=== PATIENT | male | born 1945 | race Caucasian/White ===

== ENCOUNTER 2022-01-19 19:40 | Inpatient (IN) ==
[2022-01-19] MEDS ORDERED: Ipratropium/Albuterol Neb 3 ML IH ONE (20:04)
[2022-01-19] MEDS ORDERED: Azithromycin 500 MG in 0.9 % Sodium Chloride 250 ML IVPB ONE (20:05)
[2022-01-19 20:18] LABS: Basophils % 0.5 %; Eosinophils # 0.1 K/mcL (0.0-0.6); Eosinophils % 0.8 %; Hematocrit 47.7 % (37.5-50.1); Hemoglobin 15.4 g/dL (12.9-16.9); Immature Granulocytes % 0.4 % (0-4); Lymphocytes # 1.3 K/mcL (0.6-4.6); Lymphocytes % 16.3 %; Mean Corpuscular HGB Conc 32.3 g/dL (31.6-35.5); Mean Corpuscular Hemoglobin 28.3 pg (28.0-33.3); Mean Corpuscular Volume 87.5 fL (83.0-100.0); Mean Platelet Volume 9.9 fL (9.4-12.4); Monocytes # 0.3 K/mcL (0.0-1.3); Monocytes % 3.4 %; Neutrophils # 6.5 K/mcL (1.6-8.9); Platelet Count 228 K/mcL (140-400); Red Blood Count 5.45 M/mcL (4.19-5.50); Red Cell Distribution Width 13.2 % (11.5-14.5); Segmented Neutrophils % 78.6 %; White Blood Count 8.2 K/mcL (4.3-11.1)
[2022-01-19 20:55] LABS: BUN/Creatinine Ratio 14 (6-26); Blood Urea Nitrogen 16 mg/dL (8-23); Calcium 8.6 mg/dL (8.6-10.3); Carbon Dioxide 26 mEq/L (23-29); Chloride 109 mEq/L (98-107); Glucose 142 mg/dL (70-105); Osmolality,Calculated 298 (280-300); Potassium 3.8 mEq/L (3.5-5.1); Sodium 142 mEq/L (136-145); eGFR For African Americans > 60 (> 60); eGFR For Non-African Americans > 60 (> 60)
[2022-01-19 20:56] LABS: Troponin I < 0.03 ng/mL (< 0.04)
[2022-01-19] MEDS ORDERED: Naloxone 0.4 MG/ML INJ IVP PRN (23:09)
[2022-01-19] MEDS ORDERED: 0.9 % Sodium Chloride 1,000 ML IVC SCH (23:09)
[2022-01-19] MEDS ORDERED: MethylPREDNISolone 40 MG/ML VIAL IVP ONE (23:09)
[2022-01-20] MEDS: Ipratropium/Albuterol Neb 3 ML IH SCH ×6 (02:36→19:40)
[2022-01-20] MEDS ORDERED: Budesonide/Formoterol 80/4.5 1 PUFF INH IH ONE (07:40)
[2022-01-20 07:59] LABS: Basophils % 0.1 %; Hemoglobin 13.6 g/dL (12.9-16.9); Immature Granulocytes % 0.3 % (0-4); Lymphocytes % 11.4 %; Mean Corpuscular HGB Conc 32.4 g/dL (31.6-35.5); Mean Corpuscular Hemoglobin 28.2 pg (28.0-33.3); Mean Corpuscular Volume 87.1 fL (83.0-100.0); Mean Platelet Volume 10.3 fL (9.4-12.4); Monocytes # 0.1 K/mcL (0.0-1.3); Neutrophils # 7.9 K/mcL (1.6-8.9); Platelet Count 224 K/mcL (140-400); Red Blood Count 4.82 M/mcL (4.19-5.50); Red Cell Distribution Width 13.1 % (11.5-14.5); Segmented Neutrophils % 87.2 %; White Blood Count 9.1 K/mcL (4.3-11.1)
[2022-01-20] MEDS: Aspirin Enteric Coated 81 MG Tablet PO SCH (08:12)
[2022-01-20] MEDS: Ziprasidone 20 MG CAPSULE PO SCH ×2 (08:12→20:29)
[2022-01-20] MEDS: MethylPREDNISolone 40 MG/ML VIAL IVP SCH ×2 (08:13→17:16)
[2022-01-20] MEDS: Multivit/Ca/Min/Fe/FA 1 TAB TABLET PO SCH (08:13)
[2022-01-20] MEDS: Cholecalciferol (D-3) 1,000 UNIT (25MCG) TABLET PO SCH (08:13)
[2022-01-20 08:14] LABS: BUN/Creatinine Ratio 18 (6-26); Blood Urea Nitrogen 15 mg/dL (8-23); Calcium 8.5 mg/dL (8.6-10.3); Carbon Dioxide 22 mEq/L (23-29); Chloride 114 mEq/L (98-107); Glucose 147 mg/dL (70-105); Osmolality,Calculated 298 (280-300); Potassium 3.6 mEq/L (3.5-5.1); Sodium 142 mEq/L (136-145); eGFR For African Americans > 60 (> 60); eGFR For Non-African Americans > 60 (> 60)
[2022-01-20] MEDS: Furosemide 20 MG TABLET PO SCH (08:15)
[2022-01-20] MEDS: Topiramate 100 MG TABLET PO SCH (08:24)
[2022-01-20] MEDS: Budesonide/Formoterol 80/4.5 1 PUFF INH IH SCH ×2 (09:18→21:28)
[2022-01-20 13:24] LABS: Adenovirus Not Detected (Not Detect); Bordetella Pertussis Not Detected (Not Detect); Chlamydophila pneumoniae Not Detected (Not Detect); Coronavirus 229E Not Detected (Not Detect); Coronavirus HKU1 Not Detected (Not Detect); Coronavirus NL63 Not Detected (Not Detect); Coronavirus OC43 Not Detected (Not Detect); Human Metapneumovirus Not Detected (Not Detect); Human Rhinovirus/Enterovirus Not Detected (Not Detect); Influenza A Subtype 2009 H1 Not Detected (Not Detect); Influenza B Not Detected (Not Detect); Mycoplasma pneumoniae Not Detected (Not Detect); Parainfluenza Virus 1 Not Detected (Not Detect); Parainfluenza Virus 2 Not Detected (Not Detect); Parainfluenza Virus 3 Not Detected (Not Detect); Parainfluenza Virus 4 Not Detected (Not Detect); Respiratory Syncytial Virus Not Detected (Not Detect); SARS-CoV-2 Not Detected (Not Detect)
[2022-01-20] MEDS: Azithromycin 500 MG in 0.9 % Sodium Chloride 250 ML IVPB SCH (20:30)
[2022-01-20] MEDS: cefTRIAXone 1,000 MG in 0.9 % Sodium Chloride Mini Bag 100 ML IVPB SCH (21:53)
[2022-01-21] MEDS: Ipratropium/Albuterol Neb 3 ML IH SCH ×6 (00:06→20:08)
[2022-01-21] MEDS: MethylPREDNISolone 40 MG/ML VIAL IVP SCH ×3 (00:11→17:49)
[2022-01-21] MEDS: *HR* Enoxaparin 40 MG/0.4 ML SYRINGE SQ SCH (05:22)
[2022-01-21 06:00] LABS: Basophils % 0.1 %; Hematocrit 39.5 % (37.5-50.1); Hemoglobin 12.6 g/dL (12.9-16.9); Immature Granulocytes % 0.5 % (0-4); Lymphocytes # 0.9 K/mcL (0.6-4.6); Lymphocytes % 6.2 %; Mean Corpuscular HGB Conc 31.9 g/dL (31.6-35.5); Mean Corpuscular Hemoglobin 28.4 pg (28.0-33.3); Mean Platelet Volume 11.1 fL (9.4-12.4); Monocytes # 0.3 K/mcL (0.0-1.3); Monocytes % 2.1 %; Neutrophils # 13.3 K/mcL (1.6-8.9); Platelet Count 212 K/mcL (140-400); Red Blood Count 4.44 M/mcL (4.19-5.50); Red Cell Distribution Width 13.5 % (11.5-14.5); Segmented Neutrophils % 91.1 %; White Blood Count 14.6 K/mcL (4.3-11.1)
[2022-01-21 06:15] LABS: BUN/Creatinine Ratio 16 (6-26); Blood Urea Nitrogen 14 mg/dL (8-23); Calcium 8.2 mg/dL (8.6-10.3); Carbon Dioxide 22 mEq/L (23-29); Chloride 114 mEq/L (98-107); Glucose 142 mg/dL (70-105); Osmolality,Calculated 299 (280-300); Potassium 3.8 mEq/L (3.5-5.1); Sodium 143 mEq/L (136-145); eGFR For African Americans > 60 (> 60); eGFR For Non-African Americans > 60 (> 60)
[2022-01-21] MEDS: Aspirin Enteric Coated 81 MG Tablet PO SCH (08:20)
[2022-01-21] MEDS: Cholecalciferol (D-3) 1,000 UNIT (25MCG) TABLET PO SCH (08:20)
[2022-01-21] MEDS: Multivit/Ca/Min/Fe/FA 1 TAB TABLET PO SCH (08:20)
[2022-01-21] MEDS: Ziprasidone 20 MG CAPSULE PO SCH ×2 (08:20→22:15)
[2022-01-21] MEDS: Furosemide 20 MG TABLET PO SCH (08:21)
[2022-01-21] MEDS: Topiramate 100 MG TABLET PO SCH (08:21)
[2022-01-21] MEDS: Budesonide/Formoterol 80/4.5 1 PUFF INH IH SCH ×2 (08:29→20:08)
[2022-01-21] MEDS: Azithromycin 500 MG in 0.9 % Sodium Chloride 250 ML IVPB SCH (20:02)
[2022-01-21] MEDS: cefTRIAXone 1,000 MG in 0.9 % Sodium Chloride Mini Bag 100 ML IVPB SCH (22:19)
[2022-01-22] MEDS: Ipratropium/Albuterol Neb 3 ML IH SCH ×4 (00:13→11:19)
[2022-01-22] MEDS: *HR* Enoxaparin 40 MG/0.4 ML SYRINGE SQ SCH (05:25)
[2022-01-22] MEDS: MethylPREDNISolone 40 MG/ML VIAL IVP SCH (05:25)
[2022-01-22 07:11] VITALS: RESP 20
[2022-01-22 07:17] LABS: Basophils % 0.1 %; Hematocrit 41.4 % (37.5-50.1); Hemoglobin 13.2 g/dL (12.9-16.9); Immature Granulocytes % 0.7 % (0-4); Lymphocytes # 1.5 K/mcL (0.6-4.6); Lymphocytes % 10.5 %; Mean Corpuscular HGB Conc 31.9 g/dL (31.6-35.5); Mean Corpuscular Hemoglobin 28.1 pg (28.0-33.3); Mean Corpuscular Volume 88.1 fL (83.0-100.0); Mean Platelet Volume 10.4 fL (9.4-12.4); Monocytes # 0.6 K/mcL (0.0-1.3); Neutrophils # 12.1 K/mcL (1.6-8.9); Platelet Count 207 K/mcL (140-400); Red Cell Distribution Width 13.8 % (11.5-14.5); Segmented Neutrophils % 84.7 %; White Blood Count 14.3 K/mcL (4.3-11.1)
[2022-01-22 07:39] LABS: BUN/Creatinine Ratio 15 (6-26); Blood Urea Nitrogen 13 mg/dL (8-23); Calcium 8.4 mg/dL (8.6-10.3); Carbon Dioxide 23 mEq/L (23-29); Chloride 114 mEq/L (98-107); Glucose 96 mg/dL (70-105); Osmolality,Calculated 298 (280-300); Potassium 3.4 mEq/L (3.5-5.1); Sodium 144 mEq/L (136-145); eGFR For African Americans > 60 (> 60); eGFR For Non-African Americans > 60 (> 60)
[2022-01-22] MEDS: Budesonide/Formoterol 80/4.5 1 PUFF INH IH SCH (08:04)
[2022-01-22] MEDS: Aspirin Enteric Coated 81 MG Tablet PO SCH (09:55)
[2022-01-22] MEDS: Ziprasidone 20 MG CAPSULE PO SCH (09:55)
[2022-01-22] MEDS: Topiramate 100 MG TABLET PO SCH (09:55)
[2022-01-22] MEDS: Cholecalciferol (D-3) 1,000 UNIT (25MCG) TABLET PO SCH (09:56)
[2022-01-22] MEDS: Furosemide 20 MG TABLET PO SCH (09:56)
[2022-01-22] MEDS: Multivit/Ca/Min/Fe/FA 1 TAB TABLET PO SCH (09:56)
[2022-01-22 10:44] VITALS: BP 128/69; PULSE 103; TEMP 98.4
[2022-01-22 11:20] VITALS: O2SAT 98
== END 2022-01-22 15:00 | disposition home health service (06) | DRG 193 ==
LOC: INPPIK 19:40 → EMEROOPIK 19:40 → INPPIK 22:58
PROVIDERS: ADMIT Student in an Organized Health Care Education/Training Program; ATTEND Student in an Organized Health Care Education/Training Program

== ENCOUNTER 2022-02-14 09:24 | Inpatient (IN) ==
[2022-02-14] MEDS ORDERED: methylPREDNISolone 125 MG/2 ML VIAL IVP ONE (09:27)
[2022-02-14 09:45] LABS: ABG Base Excess -3 mEq/L (-2 to 3); ABG HCO3 21 mEq/L (21-27); ABG Oxygen Saturation 96 % (95-98); ABG PCO2 36 mmHg (35-45); ABG PH 7.38 pH Units (7.32-7.45); ABG PO2 80 mmHg (85-104); ABG TCO2 22 mEq/L (20-26)
[2022-02-14 09:52] LABS: Basophils % 0.1 %; Hematocrit 42.1 % (37.5-50.1); Hemoglobin 13.8 g/dL (12.9-16.9); Immature Granulocytes % 0.5 % (0-4); Lymphocytes # 1.1 K/mcL (0.6-4.6); Lymphocytes % 7.3 %; Mean Corpuscular HGB Conc 32.8 g/dL (31.6-35.5); Mean Corpuscular Hemoglobin 28.3 pg (28.0-33.3); Mean Corpuscular Volume 86.3 fL (83.0-100.0); Mean Platelet Volume 10.2 fL (9.4-12.4); Monocytes % 6.6 %; Neutrophils # 13.2 K/mcL (1.6-8.9); Platelet Count 218 K/mcL (140-400); Red Blood Count 4.88 M/mcL (4.19-5.50); Red Cell Distribution Width 13.2 % (11.5-14.5); Segmented Neutrophils % 85.5 %; White Blood Count 15.4 K/mcL (4.3-11.1)
[2022-02-14 10:01] LABS: INR 1.4; Prothrombin Time 15.3 Seconds (9.4-12.1)
[2022-02-14 10:12] LABS: Alanine Aminotransferase 43 Units/L (7-52); Albumin 3.8 g/dL (3.5-5.7); Albumin/Globulin Ratio 1.2 (1.1-2.2); Alkaline Phosphatase 94 Units/L (34-104); Aspartate Amino Transferase 85 Units/L (13-39); BUN/Creatinine Ratio 18 (6-26); Bilirubin,Direct 0.3 mg/dL (0.0-0.2); Bilirubin,Indirect 0.7 mg/dL (0.0-1.0); Blood Urea Nitrogen 15 mg/dL (8-23); Calcium 8.6 mg/dL (8.6-10.3); Carbon Dioxide 21 mEq/L (23-29); Chloride 110 mEq/L (98-107); Globulin 3.3 g/dL (2.4-3.5); Glucose 133 mg/dL (70-105); Osmolality,Calculated 295 (280-300); Potassium 3.4 mEq/L (3.5-5.1); Sodium 141 mEq/L (136-145); Total Protein 7.1 g/dL (6.4-8.9); eGFR For African Americans > 60 (> 60); eGFR For Non-African Americans > 60 (> 60)
[2022-02-14 10:13] LABS: Troponin I < 0.03 ng/mL (< 0.04)
[2022-02-14] MEDS ORDERED: cefTRIAXone 2,000 MG in 0.9 % Sodium Chloride Mini Bag 100 ML IVPB ONE (10:32)
[2022-02-14] MEDS ORDERED: Azithromycin 500 MG in 0.9 % Sodium Chloride 250 ML IVPB ONE (10:32)
[2022-02-14 10:50] LABS: Bilirubin,Urine Small (Negative); Blood,Urine Large (Negative); Clarity,Urine Clear (Clear); Glucose,Urine (UA) Normal (Normal); Ketones,Urine Negative (Negative); Leukocyte Esterase,Urine Negative (Negative); Nitrite,Urine Negative (Negative); PH,Urine 5.5 pH Units (5.0-8.0); Protein,Urine >=300 mg/dL (Neg-Trace); Specific Gravity,Urine >= 1.030 (1.010-1.025)
[2022-02-14 10:54] LABS: Color,Urine Dark Yellow (Yellow)
[2022-02-14 10:56] LABS: Amorphous Sediment,Urine Moderate per hpf (None-Few); Bacteria,Urine Few per hpf (None-Few); WBC,Urine 0-3 per hpf (0-3)
[2022-02-14] MEDS ORDERED: Ondansetron 4 MG/2 ML VIAL IVP PRN (10:58)
[2022-02-14] MEDS ORDERED: Acetaminophen 325 MG TABLET PO PRN (10:58)
[2022-02-14] MEDS ORDERED: Naloxone 0.4 MG/ML INJ IVP PRN (10:58)
[2022-02-14] MEDS ORDERED: Ipratropium/Albuterol Neb 3 ML IH PRN (11:01)
[2022-02-14] MEDS: *HR* Heparin 5,000 UNIT/ML VIAL SQ SCH ×2 (15:30→21:53)
[2022-02-14] MEDS: MethylPREDNISolone 40 MG/ML VIAL IVP SCH ×2 (15:30→23:49)
[2022-02-14] MEDS: Budesonide/Formoterol 160/4.5 1 PUFF INH IH SCH (21:13)
[2022-02-14] MEDS: Ziprasidone 20 MG CAPSULE PO SCH (21:54)
[2022-02-15] MEDS: *HR* Heparin 5,000 UNIT/ML VIAL SQ SCH ×3 (04:44→20:05)
[2022-02-15 07:16] LABS: Basophils % 0.1 %; Hemoglobin 12.4 g/dL (12.9-16.9); Immature Granulocytes % 0.6 % (0-4); Lymphocytes % 6.7 %; Mean Corpuscular HGB Conc 31.8 g/dL (31.6-35.5); Mean Corpuscular Hemoglobin 27.7 pg (28.0-33.3); Mean Corpuscular Volume 87.2 fL (83.0-100.0); Mean Platelet Volume 10.5 fL (9.4-12.4); Monocytes # 0.4 K/mcL (0.0-1.3); Monocytes % 2.9 %; Platelet Count 232 K/mcL (140-400); Red Blood Count 4.47 M/mcL (4.19-5.50); Red Cell Distribution Width 13.2 % (11.5-14.5); Segmented Neutrophils % 89.7 %; White Blood Count 14.3 K/mcL (4.3-11.1)
[2022-02-15 07:48] LABS: BUN/Creatinine Ratio 22 (6-26); Blood Urea Nitrogen 17 mg/dL (8-23); Calcium 8.6 mg/dL (8.6-10.3); Carbon Dioxide 25 mEq/L (23-29); Chloride 110 mEq/L (98-107); Glucose 141 mg/dL (70-105); Magnesium 2.2 mg/dL (1.6-2.6); Osmolality,Calculated 294 (280-300); Potassium 3.6 mEq/L (3.5-5.1); Sodium 140 mEq/L (136-145); eGFR For African Americans > 60 (> 60); eGFR For Non-African Americans > 60 (> 60)
[2022-02-15 07:56] LABS: Neutrophils # 12.8 K/mcL (1.6-8.9)
[2022-02-15] MEDS ORDERED: Azithromycin 500 MG in 0.9 % Sodium Chloride 250 ML IVPB SCH (09:00)
[2022-02-15] MEDS ORDERED: cefTRIAXone 2,000 MG in 0.9 % Sodium Chloride 20 ML IVP SCH (09:00)
[2022-02-15] MEDS ORDERED: cefTRIAXone 2,000 MG in 0.9 % Sodium Chloride Mini Bag 100 ML IVPB SCH ×2 (09:00→11:00)
[2022-02-15] MEDS: Budesonide/Formoterol 160/4.5 1 PUFF INH IH SCH ×2 (09:16→21:24)
[2022-02-15] MEDS: Furosemide 20 MG TABLET PO SCH (10:15)
[2022-02-15] MEDS: Aspirin 81 MG TAB.CHEW PO SCH (10:15)
[2022-02-15] MEDS ORDERED: cefTRIAXone 2,000 MG in Water for inj. (sterile) 20 ML IVP SCH (10:15)
[2022-02-15] MEDS: Ziprasidone 20 MG CAPSULE PO SCH ×2 (10:15→20:05)
[2022-02-15] MEDS: Topiramate 100 MG TABLET PO SCH (10:15)
[2022-02-15] MEDS: MethylPREDNISolone 40 MG/ML VIAL IVP SCH ×2 (10:16→18:21)
[2022-02-16] MEDS: MethylPREDNISolone 40 MG/ML VIAL IVP SCH ×3 (00:05→17:31)
[2022-02-16] MEDS: *HR* Heparin 5,000 UNIT/ML VIAL SQ SCH ×3 (05:19→20:19)
[2022-02-16 07:21] LABS: Basophils % 0.1 %; Hematocrit 39.2 % (37.5-50.1); Hemoglobin 12.7 g/dL (12.9-16.9); Immature Granulocytes % 0.5 % (0-4); Lymphocytes # 1.3 K/mcL (0.6-4.6); Lymphocytes % 8.6 %; Mean Corpuscular HGB Conc 32.4 g/dL (31.6-35.5); Mean Corpuscular Hemoglobin 28.2 pg (28.0-33.3); Mean Corpuscular Volume 87.1 fL (83.0-100.0); Mean Platelet Volume 10.3 fL (9.4-12.4); Monocytes # 0.7 K/mcL (0.0-1.3); Monocytes % 4.8 %; Platelet Count 254 K/mcL (140-400); Red Cell Distribution Width 13.2 % (11.5-14.5); White Blood Count 15.1 K/mcL (4.3-11.1)
[2022-02-16 07:51] LABS: BUN/Creatinine Ratio 22 (6-26); Blood Urea Nitrogen 16 mg/dL (8-23); Calcium 8.5 mg/dL (8.6-10.3); Carbon Dioxide 26 mEq/L (23-29); Chloride 113 mEq/L (98-107); Glucose 106 mg/dL (70-105); Magnesium 2.3 mg/dL (1.6-2.6); Osmolality,Calculated 300 (280-300); Potassium 3.9 mEq/L (3.5-5.1); Sodium 144 mEq/L (136-145); eGFR For African Americans > 60 (> 60); eGFR For Non-African Americans > 60 (> 60)
[2022-02-16] MEDS: Budesonide/Formoterol 160/4.5 1 PUFF INH IH SCH ×2 (08:30→22:20)
[2022-02-16] MEDS: levoFLOXacin 750 MG TABLET PO SCH (09:39)
[2022-02-16] MEDS: Ziprasidone 20 MG CAPSULE PO SCH ×2 (09:39→20:19)
[2022-02-16] MEDS: Topiramate 100 MG TABLET PO SCH (09:39)
[2022-02-16] MEDS: Furosemide 20 MG TABLET PO SCH (09:39)
[2022-02-16] MEDS: Aspirin 81 MG TAB.CHEW PO SCH (09:39)
[2022-02-17] MEDS: MethylPREDNISolone 40 MG/ML VIAL IVP SCH ×3 (00:32→15:17)
[2022-02-17] MEDS: *HR* Heparin 5,000 UNIT/ML VIAL SQ SCH ×2 (05:29→15:17)
[2022-02-17 05:31] VITALS: RESP 18
[2022-02-17 07:03] VITALS: BP 136/79; PULSE 77; TEMP 97.9
[2022-02-17] MEDS: Budesonide/Formoterol 160/4.5 1 PUFF INH IH SCH (07:46)
[2022-02-17 07:49] VITALS: O2SAT 94
[2022-02-17 07:53] LABS: Basophils % 0.2 %; Hematocrit 40.1 % (37.5-50.1); Hemoglobin 12.8 g/dL (12.9-16.9); Immature Granulocytes % 1.2 % (0-4); Lymphocytes # 1.5 K/mcL (0.6-4.6); Lymphocytes % 13.9 %; Mean Corpuscular HGB Conc 31.9 g/dL (31.6-35.5); Mean Corpuscular Hemoglobin 28.3 pg (28.0-33.3); Mean Corpuscular Volume 88.5 fL (83.0-100.0); Mean Platelet Volume 10.2 fL (9.4-12.4); Monocytes # 0.4 K/mcL (0.0-1.3); Monocytes % 4.1 %; Neutrophils # 8.5 K/mcL (1.6-8.9); Platelet Count 284 K/mcL (140-400); Red Blood Count 4.53 M/mcL (4.19-5.50); Red Cell Distribution Width 13.3 % (11.5-14.5); Segmented Neutrophils % 80.6 %; White Blood Count 10.5 K/mcL (4.3-11.1)
[2022-02-17 08:09] LABS: BUN/Creatinine Ratio 22 (6-26); Blood Urea Nitrogen 16 mg/dL (8-23); Calcium 8.4 mg/dL (8.6-10.3); Carbon Dioxide 25 mEq/L (23-29); Chloride 110 mEq/L (98-107); Glucose 92 mg/dL (70-105); Magnesium 2.2 mg/dL (1.6-2.6); Osmolality,Calculated 293 (280-300); Potassium 4.2 mEq/L (3.5-5.1); Sodium 141 mEq/L (136-145); eGFR For African Americans > 60 (> 60); eGFR For Non-African Americans > 60 (> 60)
[2022-02-17] MEDS: Ziprasidone 20 MG CAPSULE PO SCH (10:00)
[2022-02-17] MEDS: Aspirin 81 MG TAB.CHEW PO SCH (10:00)
[2022-02-17] MEDS: Topiramate 100 MG TABLET PO SCH (10:00)
[2022-02-17] MEDS: Furosemide 20 MG TABLET PO SCH (10:01)
[2022-02-17] MEDS: levoFLOXacin 750 MG TABLET PO SCH (10:01)
== END 2022-02-17 15:35 | disposition home health service (06) | DRG 194 ==
LOC: INPPIK 09:24 → EMEROOPIK 09:24 → INPPIK 12:06
PROVIDERS: ADMIT Family Medicine; ATTEND Family Medicine